=== PATIENT | female | born 1985 | race American Indian/Alaskan Native ===

== ENCOUNTER 2021-03-20 13:51 | Emergency (ER) | payer MEDICAID ==
[2021-03-20] MEDS ORDERED: Sodium Chloride 0.9% 10 ML Syringe FLUSH PRN (13:58)
[2021-03-20 14:02] VITALS: BP 157/87; PULSE 62
[2021-03-20] MEDS ORDERED: Ondansetron 4 MG/2 ML SDV IVPUSH ONE (14:22)
[2021-03-20] MEDS ORDERED: Ondansetron 4 MG/2 ML SDV ONE (14:23)
--- NOTE | 2021-03-20 14:29 | EDM.PDOC ---
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 Patient notes she is roughly 6 weeks , and developed vaginal bleeding this morning. She notes it is quite heavy she has been using toilet paper to catch the blood and she has not had any sort of pads for this. Patient is currently incarcerated at the correctional center in [facility] [address]. She is a G5, with 1 spontaneous miscarriage. She states she is feeling dizzy and lightheaded, she does not think she was passing any sort of clot-like material. Patient states that she is having some lower abdomen cramps as well. Patient notes that her brother was recently diagnosed with COVID-19, and she has a multitude of symptoms like cough/runny nose/congestion/fever/body aches. She is denying any urinary issues like frequency urgency or dysuria at this time. She has not been evaluated for this , so she is not set up with MARBLE WORKER at this time. Patient notes that she did take a test at home that was positive. Also states she has had both Covid vaccines, roughly 2 months ago. Lower Abdominal Pain Score (Numeric/FACES): 4 - Related Data Allergies Allergy/AdvReac Type Severity Reaction Status Date / Time No Known Allergies Allergy Verified 04/12/16 16:38 Home Meds: Home Meds Levothyroxine 125 mcg PO ACBREAKFAST 03/20/21 [History] Venlafaxine [Effexor] 37.5 mg PO DAILY 03/20/21 [History] Past Medical History HEENT History: Reports: Impaired Vision Other HEENT History: states "I used to wear contacts." Gastrointestinal History: Reports: Cholelithiasis, GERD MARBLE WORKER History: Reports: Neurological History: Reports: Migraines Psychiatric History: Reports: Anxiety, Depression Endocrine/Metabolic History: Reports: Hypothyroidism - Infectious Disease History Infectious Disease History: Reports: Chicken Pox - Past Surgical History GI Surgical History: Reports: Cholecystectomy Social & Family History - Tobacco Use Tobacco Use Status *Q: Current Every Day Tobacco User Years of Tobacco use: 2 Packs/Tins Daily: 0.4 - Caffeine Use Caffeine Use: Reports: Coffee - Recreational Drug Use Recreational Drug Use: No ED ROS GENERAL - Review of Systems Review Of Systems: Comprehensive ROS is negative, except as noted in HPI. ED EXAM - Physical Exam Exam: See Below Exam Limited By: No Limitations General Appearance: Alert, WD/WN, No Apparent Distress Respiratory/Chest: No Respiratory Distress, Lungs Clear, Normal Breath Sounds, No Accessory Muscle Use, Chest Non-Tender Cardiovascular: Normal Peripheral Pulses, Regular Rate, Rhythm, No Edema GI/Abdominal Exam: Normal Bowel Sounds, Soft, Non-Tender, No Distention, No Mass Heart Tones: Not Terrell Movement: Not Appreciated Neurological: Alert, Oriented, Normal Cognition, No Motor/Sensory Deficits Psychiatric: Normal Affect, Normal Mood Skin Exam: Warm, Dry, Intact, Normal Color, No Rash Course - Vital Signs Last Recorded V/S: Last Vital Signs Temp 98.2 F 03/20/21 13:57 Pulse 62 03/20/21 13:57 Resp 16 03/20/21 13:57 BP 157/87 H 03/20/21 13:57 Pulse Ox 93 L 03/20/21 13:57 - Orders/Labs/Meds Orders: Active Orders 24 hr Category Date Time Status Peripheral IV Care [RC] . DIRECTED Care 03/20/21 13:59 Ordered OB Transvaginal [US] Stat Exams 03/20/21 13:58 Ordered PATIENT RETYPE [BBK] Routine Lab 03/20/21 15:49 Ordered Sodium Chloride 0.9% [Saline Flush] Med 03/20/21 13:58 Ordered 10 ml FLUSH ASDIRECTED PRN Peripheral IV Insertion Adult [OM.PC] Stat Oth 03/20/21 13:58 Ordered Medication Orders Sodium Chloride (Sodium Chloride 0.9% 10 Ml Syringe) 10 ml FLUSH ASDIRECTED PRN PRN Reason: Keep Vein Open Last Admin: 03/20/21 14:27 Dose: 10 ml Documented by: MARLENE Labs: Laboratory Tests 03/20/21 03/20/21 03/20/21 Range/Units 14:05 14:15 14:15 WBC 9.66 (3.98-10.04) K/mm3 RBC 4.90 (3.98-5.22) M/mm3 Hgb 14.3 (11.2-15.7) gm/dl Hct 44.4 (34.1-44.9) % MCV 90.6 D (79.4-94.8) fl MCH 29.2 (25.6-32.2) pg MCHC 32.2 (32.2-35.5) g/dl RDW Std Deviation 43.0 (36.4-46.3) fL Plt Count 368 (182-369) K/mm3 MPV 10.7 (9.4-12.3) fl Neut % (Auto) 61.6 (34.0-71.1) % Lymph % (Auto) 27.7 (19.3-51.7) % Mercer % (Auto) 7.8 (4.7-12.5) % Eos % (Auto) 2.6 (0.7-5.8) Baso % (Auto) 0.2 (0.1-1.2) % Neut # (Auto) 5.95 (1.56-6.13) K/mm3 Lymph # (Auto) 2.68 (1.18-3.74) K/mm3 Mercer # (Auto) 0.75 H (0.24-0.36) K/mm3 Eos # (Auto) 0.25 (0.04-0.36) K/mm3 Baso # (Auto) 0.02 (0.01-0.08) K/mm3 HCG, Quant 1.0 mIU/mL Influenza Type A RNA Negative (NEGATIVE) Influenza Type B RNA Negative (NEGATIVE) SARS-CoV-2 RNA (EDIL) Negative (NEGATIVE) Blood Type Gel Antibody Screen 03/20/21 Range/Units 14:15 WBC (3.98-10.04) K/mm3 RBC (3.98-5.22) M/mm3 Hgb (11.2-15.7) gm/dl Hct (34.1-44.9) % MCV (79.4-94.8) fl MCH (25.6-32.2) pg MCHC (32.2-35.5) g/dl RDW Std Deviation (36.4-46.3) fL Plt Count (182-369) K/mm3 MPV (9.4-12.3) fl Neut % (Auto) (34.0-71.1) % Lymph % (Auto) (19.3-51.7) % Mercer % (Auto) (4.7-12.5) % Eos % (Auto) (0.7-5.8) Baso % (Auto) (0.1-1.2) % Neut # (Auto) (1.56-6.13) K/mm3 Lymph # (Auto) (1.18-3.74) K/mm3 Mercer # (Auto) (0.24-0.36) K/mm3 Eos # (Auto) (0.04-0.36) K/mm3 Baso # (Auto) (0.01-0.08) K/mm3 HCG, Quant mIU/mL Influenza Type A RNA (NEGATIVE) Influenza Type B RNA (NEGATIVE) SARS-CoV-2 RNA (EDIL) (NEGATIVE) Blood Type A POSITIVE Gel Antibody Screen Negative Meds: Medications Generic Name Dose Route Start Last Admin Trade Name Freq PRN Reason Stop Dose Admin Sodium Chloride 10 ml 03/20/21 13:58 03/20/21 14:27 Sodium Chloride 0.9% 10 Ml Syringe FLUSH 10 ml ASDIRECTED PRN Administration Keep Vein Open Discontinued Medications Generic Name Dose Route Start Last Admin Trade Name Freq PRN Reason Stop Dose Admin Acetaminophen 650 mg 03/20/21 15:04 03/20/21 15:11 Acetaminophen 325 Mg Tab PO 03/20/21 15:05 650 mg NOW ONE Administration Ondansetron HCl 4 mg 03/20/21 14:22 03/20/21 14:27 Ondansetron 4 Mg/2 Ml Sdv IVPUSH 03/20/21 14:23 4 mg ONETIME ONE Administration Ondansetron HCl Confirm 03/20/21 14:23 03/20/21 14:27 Ondansetron 4 Mg/2 Ml Sdv Administered 03/20/21 14:24 Not Given Dose 4 mg .ROUTE .STK-MED ONE - Re-Assessments/Exams Free Text/Narrative Re-Assessment/Exam: 03/20/21 14:30 Patient presents to the ER for her vaginal bleeding and , due to her Covid symptoms, we will go ahead and swab her for COVID-19, will get ultrasound and some basic labs for evaluation as well. Patient was somewhat nauseous and she will get 4 mg Zofran. 03/20/21 15:32 The patient's CBC is unremarkable, her hemoglobin is within normal limits, her hCG quantitative level is 1.0. Patient's Covid/flu swab was negative for today's purposes. Although highly suspicious that the patient does actually have Covid, and the swab was a false negative. Ultrasound has been performed and we are just awaiting results at this time. 03/20/21 16:16 The patient's ultrasound has been reported, no intrauterine gestational sac is identified, considering a beta hCG level, differential considerations could include very early intrauterine versus completed spontaneous miscarriage versus occult ectopic . Recommend follow-up quantitative beta-hCG assessment and follow-up ultrasound if clinically indicated. 6 mm nabothian cyst in the cervix, 1.9 cm corpus luteum in the left ovary ovaries were unremarkable otherwise and demonstrate appropriate blood flow with no evidence of torsion, no free pelvic fluid. I will go over these results with Dr. Alonzo our MARBLE WORKER on-call, hopefully have her follow-up with him for repeat beta-hCG in 2 days. 03/20/21 16:30 The case was discussed with Dr. Alonzo, he believes that the patient was probably not , this is likely the start of her menses however a repeat hCG in 2 days is not advised against. We will have the sn[facility] staff repeat beta- hCG, and if it is indeed 1.0 or lower than that, then this will confirm no viable . Departure - Departure Time of Disposition: 16:31 Disposition: DC/Tfer to Court of Law En 21 Condition: Good Clinical Impression: Viral URI, Vaginal bleeding, abnormal - Discharge Information *PRESCRIPTION DRUG MONITORING PROGRAM REVIEWED*: No *COPY OF PRESCRIPTION DRUG MONITORING REPORT IN PATIENT LEYDA: No Instructions: Viral Respiratory Infection, [id number] Forms: ED Department Discharge Additional Instructions: You were evaluated in the ER today for your vaginal bleeding and suspected . Ultrasound at today's visit demonstrated no intrauterine , this is consistent either with a miscarriage versus very early versus ectopic . Staff at the snf will have to redraw your beta hCG levels on Thursday03/22/2021, to confirm that the level is indeed staying at 1.0 or lower, this would be consistent with a nonviable . If your level would increase, then they will need to make arrangements for you to be seen by MARBLE WORKER for ongoing management. If you are bleeding through more than 2-3 maxipads per hour, this would be losing too much blood and you should return to the ER for management. Your COVID-19 screen at today's visit was negative for today's purposes however it is highly suspicious that since you have had close contact with someone with COVID-19, that is very likely you could have COVID-19 but the test was negative at today's visit, causing a false negative. Recommend that you try to quarantine or keep away from others, until symptoms improve. You may use Tylenol every 6 hours as needed for ongoing discomfort. Please return to the ER at any time if symptoms change or worsen. Sepsis Event Note (ED) - Evaluation Sepsis Screening Result: No Definite Risk - Focused Exam Vital Signs: Vital Signs Temp Pulse Resp BP Pulse Ox 03/20/21 13:57 98.2 F 62 16 157/87 H 93 L - My Orders Last 24 Hours: My Active Orders 03/20/21 13:58 OB Transvaginal [US] Stat Sodium Chloride 0.9% [Saline Flush] 10 ml FLUSH ASDIRECTED PRN Peripheral IV Insertion Adult [OM.PC] Stat 03/20/21 13:59 Peripheral IV Care [RC] . DIRECTED 03/20/21 15:49 PATIENT RETYPE [BBK] Routine - Assessment/Plan Last 24 Hours: My Active Orders 03/20/21 13:58 OB Transvaginal [US] Stat Sodium Chloride 0.9% [Saline Flush] 10 ml FLUSH ASDIRECTED PRN Peripheral IV Insertion Adult [OM.PC] Stat 03/20/21 13:59 Peripheral IV Care [RC] . DIRECTED 03/20/21 15:49 PATIENT RETYPE [BBK] Routine
[2021-03-20 15:01] LABS: CORONAVIRUS COVID-19 NAA NEGATIVE (NEGATIVE)
[2021-03-20] MEDS ORDERED: Acetaminophen 325 MG Tab PO ONE (15:04)
--- NOTE | 2021-03-21 07:53 | US ---
First trimester obstetrical ultrasound: Multiple real-time images were obtained transvaginally. Comparison: No previous ultrasound is available. No intrauterine gestational sac is seen. Endometrial thickness measures within normal limits. Small nabothian cyst is present. Maternal right ovary appears normal. Maternal left ovary shows a small complicated area measuring 1.9 cm believed to represent a small hemorrhagic and physiologic cyst. No adnexal abnormalities are seen. Measurements: Uterus: Length 10.0 cm, AP height 5.3 cm, transverse width 6.4 cm Right ovary: 3.3 x 1.6 x 2.2 cm Left ovary: 3.8 x 2.0 x 2.4 cm Impression: 1. No intrauterine gestational sac. Endometrial thickness measures normal at 9 mm. No adnexal abnormalities are seen. Please correlate with patient's beta hCGs as current findings suggest nonviable . 2. Small nabothian cyst. No additional abnormality is seen. Diagnostic code #2 I agree with preliminary report from [facility], finalized on 03/20/21, 5:11 PM CDT, code 1
== END 2021-03-20 16:46 ==
LOC: JD.ED 13:51
DX: O20.9 Hemorrhage in early pregnancy, unspecified (principal); O99.511 Diseases of the respiratory system complicating pregnancy, first trimester; J06.9 Acute upper respiratory infection, unspecified; Z3A.01 Less than 8 weeks gestation of pregnancy; Z20.822 Contact with and (suspected) exposure to COVID-19
CPT/HCPCS: 0240U; 36415; 76817; 84702; 85025; 86850; 86900; 86901; 96374; 99284; A9270; J2405; 99283